=== PATIENT | male | born 1930 | race Caucasian/White ===

== ENCOUNTER 2017-01-26 09:10 | Emergency (ER) | payer MEDICARE ==
[2017-01-26 10:24] LABS: INR 1.5; PROTHROMBIN TIME 16.1 SECONDS (9.3-11.4)
--- NOTE | 2017-01-26 11:19 | US ---
VENOUS ULTRASOUND OF EXTREMITY Indications: Pain for 3 days along back of thigh. Comparison: None FINDINGS: Multiple grayscale, color-flow and duplex Doppler images during left lower extremity DVT ultrasound are obtained from the common femoral vein down through to the peroneal and posterior tibial veins. DEEP VENOUS THROMBOSIS: None. COMMON FEMORAL VEIN: Normal. PROXIMAL FEMORAL VEIN: Normal. MID TO DISTAL FEMORAL VEIN: Normal. POPLITEAL VEIN: Normal. PROXIMAL CALF VEINS: Normal. IMPRESSION: No deep venous thrombosis of the left leg. Findings were called to Dr. Kothari at approximately 1116 hours on 01/26/2017.
== END 2017-01-26 11:55 | disposition home or self-care (01) ==
LOC: ED 09:10
DX: M79.605 Pain in left leg (principal); I12.9 Hypertensive chronic kidney disease with stage 1 through stage 4 chronic kidney disease, or unspecified chronic kidney disease; N18.3 Chronic kidney disease, stage 3 (moderate); E78.5 Hyperlipidemia, unspecified; E78.00 Pure hypercholesterolemia, unspecified; Z86.73 Personal history of transient ischemic attack (TIA), and cerebral infarction without residual deficits; Z79.01 Long term (current) use of anticoagulants